=== PATIENT | male | born 1975 | race African-American/Black ===

== ENCOUNTER 2020-09-28 00:31 | Inpatient (IN) ==
[2020-09-28] MEDS ORDERED: guaiFENesin/DM ER 600-30 MG TABLET PO PRN (03:13)
[2020-09-28] MEDS ORDERED: diphenhydrAMINE CAP 25 MG CAPSULE PO PRN (03:13)
[2020-09-28] MEDS ORDERED: DEXTROSE 50% 25 GM/50 ML VIAL IV PRN (03:13)
[2020-09-28] MEDS ORDERED: ACETAMINOPHEN 325 MG TABLET PO PRN (03:13)
[2020-09-28] MEDS ORDERED: GLUCAGON 1 MG VIAL IM PRN (03:13)
[2020-09-28] MEDS ORDERED: ONDANSETRON 4 MG/2 ML VIAL IV PRN (03:13)
[2020-09-28] MEDS ORDERED: NICOTINE 21 MG/24 HR PATCH TRANSDERM PRN (03:13)
[2020-09-28] MEDS: hydrALAZINE 20 MG/1 ML VIAL IV PRN (04:28)
[2020-09-28 05:12] LABS: Basophils # 0.1 10*3/uL (0.0-0.2); Basophils % 0.7 % (0.0-0.8); Eosinophils % 0.3 % (0.00-10.9); Hematocrit 50.8 VOL% (42.0-52.0); Hemoglobin 16.6 GM/DL (14.0-18.0); Immature Granulocytes % 0.4 %; Immature Granulocytes Absolute 0.04 #; Lymphocytes # 1.4 10*3/uL (1.4-4.0); Lymphocytes % 14.7 % (21.2-54.2); Mean Corpuscular HGB Conc 32.7 GM/DL (32-36); Mean Corpuscular Volume 84.9 FL (87-102); Mean Platelet Volume 9.9 FL (9.6-12.0); Monocytes % 4.5 % (1.7-12.7); Neutrophils % 79.4 % (38.7-73.9); Platelet Count 252 T/CUMM (130-400); Red Blood Count 5.98 MC/CUMM (3.8-5.5); Red Cell Distribution Width 14.3 % (9.3-17.3); White Blood Count 9.6 T/CUMM (4-12)
[2020-09-28 05:34] LABS: Albumin 2.4 G/DL (3.4-5.0); Bilirubin,Total 1.9 MG/DL (0.2-1.0); Calcium 8.7 MG/DL (8.5-10.1); Osmolality,Calculated 278.7 MOS/KG (273-304); Potassium 3.8 MMOL/L (3.5-5.1); Risk Ratio 3.78; VLDL CHOLESTEROL 18.6 MG/DL
[2020-09-28] MEDS: ALBUTEROL/IPRATROPIUM 3 ML NEB RESP TX SCH ×3 (07:37→19:30)
[2020-09-28] MEDS: FUROSEMIDE 40 MG/4 ML VIAL IV SCH ×2 (09:34→16:00)
[2020-09-28] MEDS: ASPIRIN EC 81 MG TABLET PO SCH (09:34)
[2020-09-28] MEDS: carvediloL 6.25 MG TABLET PO SCH ×2 (09:34→20:26)
[2020-09-28] MEDS: ENOXAPARIN 40 MG/0.4 ML SYRINGE SUBCUT SCH (11:50)
[2020-09-28 13:05] LABS: Bilirubin,Urine Negative (Negative); Blood, Urine Negative (Negative); Glucose,Urine (UA) Negative (Negative); Ketones,Urine Negative (Negative); Mucus,Urine Occasional /LPF (Occasional); Nitrite,Urine Negative (Negative); Protein,Urine 100 MG/DL; RBC,Urine 2 /HPF (0-4); Squamous Epithelial Cell,Urine Occasional /HPF (0-10); Urine Appearance CLEAR (Clear); Urine Color Yellow (Yellow); Urine Specific Gravity 1.008 (1.001-1.035); WBC,Urine <1 /HPF (0-6)
[2020-09-28 13:10] LABS: Barbiturates Screen,Urine Negative (Negative); Benzodiazepines Screen,Urine Negative (Negative); Cannabinoid Screen,Urine Negative (Negative); Opiate Screen,Urine Negative (Negative); Phencyclidine Screen,Urine Negative (Negative)
[2020-09-28 13:18] LABS: Hepatitis B Core IgM Quant 0.05 Index; Hepatitis B Surface Ag Quant < 0.10 Index; Hepatitis B Surface Ag Result Non-Reactive (NonReactive); Hepatitis C Virus Ab Quant > 11.00 Index; Hepatitis C Virus Ab Result Reactive (NonReactive)
[2020-09-29] MEDS: ALBUTEROL/IPRATROPIUM 3 ML NEB RESP TX SCH ×4 (01:17→19:39)
[2020-09-29 05:17] LABS: Basophils # 0.1 10*3/uL (0.0-0.2); Basophils % 0.9 % (0.0-0.8); Eosinophils # 0.1 10*3/uL (0.0-0.87); Hematocrit 49.4 VOL% (42.0-52.0); Hemoglobin 16.4 GM/DL (14.0-18.0); Immature Granulocytes % 0.3 %; Immature Granulocytes Absolute 0.02 #; Lymphocytes % 25.5 % (21.2-54.2); Mean Corpuscular HGB Conc 33.2 GM/DL (32-36); Mean Corpuscular Volume 83.4 FL (87-102); Mean Platelet Volume 10.1 FL (9.6-12.0); Monocytes % 9.1 % (1.7-12.7); Neutrophils % 63.2 % (38.7-73.9); Platelet Count 245 T/CUMM (130-400); Red Blood Count 5.92 MC/CUMM (3.8-5.5); Red Cell Distribution Width 14.4 % (9.3-17.3); White Blood Count 7.9 T/CUMM (4-12)
[2020-09-29 05:34] LABS: Calcium 8.4 MG/DL (8.5-10.1); Osmolality,Calculated 273.8 MOS/KG (273-304); Potassium 3.5 MMOL/L (3.5-5.1)
[2020-09-29] MEDS: hydrALAZINE 20 MG/1 ML VIAL IV PRN (07:38)
[2020-09-29] MEDS: hydrALAZINE 25 MG TABLET PO SCH ×3 (08:50→20:58)
[2020-09-29] MEDS: SPIRONOLACTONE 25 MG TABLET PO SCH (08:50)
[2020-09-29] MEDS: ISOSORBIDE MONONITRATE 30 MG TABLET PO SCH (08:50)
[2020-09-29] MEDS: carvediloL 6.25 MG TABLET PO SCH ×2 (08:50→20:58)
[2020-09-29] MEDS: ASPIRIN EC 81 MG TABLET PO SCH (08:50)
[2020-09-29] MEDS: FUROSEMIDE 40 MG/4 ML VIAL IV SCH ×2 (08:54→15:35)
[2020-09-29] MEDS: ENOXAPARIN 40 MG/0.4 ML SYRINGE SUBCUT SCH (09:47)
[2020-09-30] MEDS: ALBUTEROL/IPRATROPIUM 3 ML NEB RESP TX SCH ×4 (01:12→19:13)
[2020-09-30] MEDS: hydrALAZINE 20 MG/1 ML VIAL IV PRN (04:37)
[2020-09-30 05:37] LABS: Basophils # 0.1 10*3/uL (0.0-0.2); Basophils % 0.8 % (0.0-0.8); Eosinophils # 0.1 10*3/uL (0.0-0.87); Eosinophils % 0.8 % (0.00-10.9); Hematocrit 50.1 VOL% (42.0-52.0); Hemoglobin 15.7 GM/DL (14.0-18.0); Immature Granulocytes % 0.5 %; Immature Granulocytes Absolute 0.04 #; Lymphocytes # 1.4 10*3/uL (1.4-4.0); Lymphocytes % 16.5 % (21.2-54.2); Mean Corpuscular HGB Conc 31.3 GM/DL (32-36); Mean Corpuscular Volume 86.7 FL (87-102); Mean Platelet Volume 9.7 FL (9.6-12.0); Monocytes % 10.3 % (1.7-12.7); Neutrophils % 71.1 % (38.7-73.9); Platelet Count 235 T/CUMM (130-400); Red Blood Count 5.78 MC/CUMM (3.8-5.5); Red Cell Distribution Width 14.5 % (9.3-17.3); White Blood Count 8.7 T/CUMM (4-12)
[2020-09-30 05:48] LABS: PT Patient Result 11.2 SECS (9.8-11.9)
[2020-09-30 06:03] LABS: Osmolality,Calculated 272.8 MOS/KG (273-304)
[2020-09-30 06:03] LABS: Calcium 7.9 MG/DL (8.5-10.1); Osmolality,Calculated 272.8 MOS/KG (273-304)
[2020-09-30 06:09] LABS: Albumin 2.1 G/DL (3.4-5.0); Bilirubin,Total 0.6 MG/DL (0.2-1.0); Calcium 7.8 MG/DL (8.5-10.1); Osmolality,Calculated 274.7 MOS/KG (273-304); Total Protein 5.6 G/DL (6.4-8.2)
[2020-09-30] MEDS ORDERED: POTASSIUM CHLORIDE 20 MEQ TABLET PO ONE (08:18)
[2020-09-30] MEDS: FUROSEMIDE 40 MG/4 ML VIAL IV SCH ×2 (09:40→16:41)
[2020-09-30] MEDS: hydrALAZINE 25 MG TABLET PO SCH ×3 (09:41→21:24)
[2020-09-30] MEDS: ISOSORBIDE MONONITRATE 30 MG TABLET PO SCH (09:41)
[2020-09-30] MEDS: ASPIRIN EC 81 MG TABLET PO SCH (09:41)
[2020-09-30] MEDS: SPIRONOLACTONE 25 MG TABLET PO SCH (09:42)
[2020-09-30] MEDS: METOPROLOL TARTRATE 50 MG TABLET PO SCH ×2 (09:45→21:24)
[2020-09-30] MEDS: ENOXAPARIN 40 MG/0.4 ML SYRINGE SUBCUT SCH (11:23)
[2020-09-30] MEDS ORDERED: POTASSIUM CHLORIDE RIDER 10 MEQ in PREMIX 1 EACH IV PRN (12:17)
[2020-09-30] MEDS ORDERED: MAGNESIUM SULF RIDER 2 GM in PREMIX 1 EACH IV PRN (12:17)
[2020-09-30 14:15] LABS: Calcium 8.2 MG/DL (8.5-10.1); Osmolality,Calculated 271.8 MOS/KG (273-304); Potassium 3.7 MMOL/L (3.5-5.1)
[2020-10-01] MEDS: ALBUTEROL/IPRATROPIUM 3 ML NEB RESP TX SCH ×4 (00:02→19:15)
[2020-10-01] MEDS ORDERED: diphenhydrAMINE CAP 50 MG CAPSULE PO ONE (06:30)
[2020-10-01] MEDS ORDERED: DIAZEPAM 5 MG TABLET PO ONE (06:30)
[2020-10-01 07:07] LABS: Basophils # 0.1 10*3/uL (0.0-0.2); Basophils % 0.7 % (0.0-0.8); Eosinophils # 0.1 10*3/uL (0.0-0.87); Eosinophils % 1.3 % (0.00-10.9); Hematocrit 48.6 VOL% (42.0-52.0); Hemoglobin 15.6 GM/DL (14.0-18.0); Immature Granulocytes % 0.4 %; Immature Granulocytes Absolute 0.04 #; Lymphocytes # 1.7 10*3/uL (1.4-4.0); Lymphocytes % 17.3 % (21.2-54.2); Mean Corpuscular HGB Conc 32.1 GM/DL (32-36); Mean Corpuscular Volume 85.9 FL (87-102); Mean Platelet Volume 10.5 FL (9.6-12.0); Monocytes % 13.5 % (1.7-12.7); Neutrophils % 66.8 % (38.7-73.9); Platelet Count 247 T/CUMM (130-400); Red Blood Count 5.66 MC/CUMM (3.8-5.5); Red Cell Distribution Width 14.6 % (9.3-17.3); White Blood Count 9.6 T/CUMM (4-12)
[2020-10-01 07:18] LABS: Calcium 8.3 MG/DL (8.5-10.1); Osmolality,Calculated 274.5 MOS/KG (273-304); Potassium 3.2 MMOL/L (3.5-5.1)
[2020-10-01 07:23] LABS: Albumin 2.2 G/DL (3.4-5.0); Bilirubin,Total 0.9 MG/DL (0.2-1.0); Calcium 8.1 MG/DL (8.5-10.1); Osmolality,Calculated 272.7 MOS/KG (273-304); Potassium 3.5 MMOL/L (3.5-5.1); Total Protein 5.1 G/DL (6.4-8.2)
[2020-10-01] MEDS ORDERED: POTASSIUM CHLORIDE 20 MEQ TABLET PO ONE (08:46)
[2020-10-01] MEDS: METOPROLOL TARTRATE 50 MG TABLET PO SCH ×2 (10:19→21:36)
[2020-10-01] MEDS: hydrALAZINE 25 MG TABLET PO SCH ×3 (10:20→21:36)
[2020-10-01] MEDS: ISOSORBIDE MONONITRATE 30 MG TABLET PO SCH (10:20)
[2020-10-01] MEDS: ASPIRIN EC 81 MG TABLET PO SCH (10:20)
[2020-10-01] MEDS: FUROSEMIDE 40 MG/4 ML VIAL IV SCH (10:21)
[2020-10-01] MEDS: SPIRONOLACTONE 25 MG TABLET PO SCH (10:21)
[2020-10-01] MEDS: ENOXAPARIN 40 MG/0.4 ML SYRINGE SUBCUT SCH (10:32)
[2020-10-01] MEDS ORDERED: HEPARIN/NACL 0.9% 2 UNITS/ML 3,000 UNIT/1,500 ML BAG IV ONE (14:01)
[2020-10-01] MEDS ORDERED: LIDOCAINE 1% 20 ML VIAL ONE (14:01)
[2020-10-01] MEDS ORDERED: MIDAZOLAM 2 MG/2 ML VIAL ONE (14:27)
[2020-10-01] MEDS ORDERED: fentaNYL 100 MCG/2 ML VIAL ONE (14:27)
[2020-10-01] MEDS: hydrALAZINE 20 MG/1 ML VIAL IV PRN (15:40)
[2020-10-02] MEDS: ALBUTEROL/IPRATROPIUM 3 ML NEB RESP TX SCH ×4 (00:30→19:34)
[2020-10-02 05:22] LABS: Basophils # 0.1 10*3/uL (0.0-0.2); Basophils % 0.7 % (0.0-0.8); Eosinophils # 0.1 10*3/uL (0.0-0.87); Eosinophils % 0.9 % (0.00-10.9); Hematocrit 48.7 VOL% (42.0-52.0); Hemoglobin 15.6 GM/DL (14.0-18.0); Immature Granulocytes Absolute 0.09 #; Lymphocytes # 1.7 10*3/uL (1.4-4.0); Lymphocytes % 18.8 % (21.2-54.2); Mean Corpuscular Volume 86.8 FL (87-102); Mean Platelet Volume 9.6 FL (9.6-12.0); Monocytes % 11.3 % (1.7-12.7); Neutrophils % 67.3 % (38.7-73.9); Platelet Count 229 T/CUMM (130-400); Red Blood Count 5.61 MC/CUMM (3.8-5.5); Red Cell Distribution Width 14.6 % (9.3-17.3); White Blood Count 8.9 T/CUMM (4-12)
[2020-10-02 05:54] LABS: Calcium 8.2 MG/DL (8.5-10.1); Osmolality,Calculated 276.7 MOS/KG (273-304); Potassium 3.5 MMOL/L (3.5-5.1)
[2020-10-02 05:59] LABS: Albumin 2.3 G/DL (3.4-5.0); Bilirubin,Total 0.8 MG/DL (0.2-1.0); Calcium 8.1 MG/DL (8.5-10.1); Potassium 3.4 MMOL/L (3.5-5.1); Total Protein 5.9 G/DL (6.4-8.2)
[2020-10-02] MEDS: FUROSEMIDE 40 MG/4 ML VIAL IV SCH ×3 (06:59→16:41)
[2020-10-02] MEDS: METOPROLOL TARTRATE 50 MG TABLET PO SCH (08:43)
[2020-10-02] MEDS: ISOSORBIDE MONONITRATE 30 MG TABLET PO SCH (08:43)
[2020-10-02] MEDS: ASPIRIN EC 81 MG TABLET PO SCH (08:43)
[2020-10-02] MEDS: hydrALAZINE 25 MG TABLET PO SCH ×3 (08:43→21:27)
[2020-10-02] MEDS: SPIRONOLACTONE 25 MG TABLET PO SCH (08:43)
[2020-10-02] MEDS ORDERED: metOLazone 5 MG TABLET PO ONE (12:00)
[2020-10-02] MEDS: CLOPIDOGREL 75 MG TABLET PO SCH (12:17)
[2020-10-02] MEDS: carvediloL 25 MG TABLET PO SCH ×2 (12:17→21:27)
[2020-10-02] MEDS ORDERED: ATORVASTATIN 40 MG TABLET PO SCH (21:00)
[2020-10-03] MEDS: ALBUTEROL/IPRATROPIUM 3 ML NEB RESP TX SCH ×4 (00:01→19:14)
[2020-10-03 05:34] LABS: Basophils # 0.1 10*3/uL (0.0-0.2); Basophils % 0.6 % (0.0-0.8); Eosinophils # 0.1 10*3/uL (0.0-0.87); Eosinophils % 1.1 % (0.00-10.9); Hematocrit 48.8 VOL% (42.0-52.0); Hemoglobin 15.8 GM/DL (14.0-18.0); Immature Granulocytes % 0.5 %; Immature Granulocytes Absolute 0.06 #; Lymphocytes # 1.9 10*3/uL (1.4-4.0); Lymphocytes % 16.6 % (21.2-54.2); Mean Corpuscular HGB Conc 32.4 GM/DL (32-36); Mean Corpuscular Volume 85.9 FL (87-102); Monocytes % 12.7 % (1.7-12.7); Neutrophils % 68.5 % (38.7-73.9); Platelet Count 215 T/CUMM (130-400); Red Blood Count 5.68 MC/CUMM (3.8-5.5); Red Cell Distribution Width 14.4 % (9.3-17.3); White Blood Count 11.4 T/CUMM (4-12)
[2020-10-03 05:58] LABS: Calcium 8.4 MG/DL (8.5-10.1); Osmolality,Calculated 265.4 MOS/KG (273-304)
[2020-10-03 06:10] LABS: Albumin 2.4 G/DL (3.4-5.0); Bilirubin,Direct 0.13 MG/DL (0.0-0.20); Bilirubin,Indirect 0.4 MG/DL (0.0-1.0); Bilirubin,Total 0.5 MG/DL (0.2-1.0); Total Protein 5.9 G/DL (6.4-8.2)
[2020-10-03] MEDS ORDERED: POTASSIUM CHLORIDE 20 MEQ PACK PO ONE (08:39)
[2020-10-03] MEDS: SPIRONOLACTONE 25 MG TABLET PO SCH (09:08)
[2020-10-03] MEDS: hydrALAZINE 25 MG TABLET PO SCH ×3 (09:08→20:55)
[2020-10-03] MEDS: ISOSORBIDE MONONITRATE 30 MG TABLET PO SCH (09:08)
[2020-10-03] MEDS: carvediloL 25 MG TABLET PO SCH ×2 (09:09→20:55)
[2020-10-03] MEDS: CLOPIDOGREL 75 MG TABLET PO SCH (09:09)
[2020-10-03] MEDS: FUROSEMIDE 40 MG/4 ML VIAL IV SCH ×2 (09:09→16:16)
[2020-10-03] MEDS: ASPIRIN EC 81 MG TABLET PO SCH (09:09)
[2020-10-04] MEDS: ALBUTEROL/IPRATROPIUM 3 ML NEB RESP TX SCH ×4 (01:18→19:37)
[2020-10-04 06:22] LABS: Basophils # 0.1 10*3/uL (0.0-0.2); Basophils % 0.6 % (0.0-0.8); Eosinophils # 0.1 10*3/uL (0.0-0.87); Eosinophils % 1.1 % (0.00-10.9); Hemoglobin 16.8 GM/DL (14.0-18.0); Immature Granulocytes % 0.8 %; Lymphocytes # 2.1 10*3/uL (1.4-4.0); Lymphocytes % 17.1 % (21.2-54.2); Mean Corpuscular HGB Conc 32.3 GM/DL (32-36); Mean Corpuscular Volume 85.5 FL (87-102); Mean Platelet Volume 9.9 FL (9.6-12.0); Monocytes % 10.4 % (1.7-12.7); Platelet Count 248 T/CUMM (130-400); Red Blood Count 6.08 MC/CUMM (3.8-5.5); Red Cell Distribution Width 14.6 % (9.3-17.3); White Blood Count 12.3 T/CUMM (4-12)
[2020-10-04 06:54] LABS: Osmolality,Calculated 266.5 MOS/KG (273-304); Potassium 3.2 MMOL/L (3.5-5.1)
[2020-10-04] MEDS: FUROSEMIDE 40 MG/4 ML VIAL IV SCH ×2 (09:04→15:53)
[2020-10-04] MEDS: carvediloL 25 MG TABLET PO SCH ×2 (09:05→22:33)
[2020-10-04] MEDS: CLOPIDOGREL 75 MG TABLET PO SCH (09:05)
[2020-10-04] MEDS: SPIRONOLACTONE 25 MG TABLET PO SCH (09:05)
[2020-10-04] MEDS: ISOSORBIDE MONONITRATE 30 MG TABLET PO SCH (09:05)
[2020-10-04] MEDS: ASPIRIN EC 81 MG TABLET PO SCH (09:05)
[2020-10-04] MEDS: hydrALAZINE 25 MG TABLET PO SCH ×3 (09:06→22:33)
[2020-10-04] MEDS ORDERED: POTASSIUM CHLORIDE 20 MEQ TABLET PO ONE (09:52)
[2020-10-05] MEDS: ALBUTEROL/IPRATROPIUM 3 ML NEB RESP TX SCH ×3 (01:02→12:48)
[2020-10-05 05:18] LABS: Basophils # 0.1 10*3/uL (0.0-0.2); Basophils % 0.7 % (0.0-0.8); Eosinophils # 0.2 10*3/uL (0.0-0.87); Eosinophils % 1.4 % (0.00-10.9); Hematocrit 51.4 VOL% (42.0-52.0); Hemoglobin 16.6 GM/DL (14.0-18.0); Immature Granulocytes % 0.9 %; Immature Granulocytes Absolute 0.12 #; Lymphocytes # 2.6 10*3/uL (1.4-4.0); Lymphocytes % 19.1 % (21.2-54.2); Mean Corpuscular HGB Conc 32.3 GM/DL (32-36); Mean Corpuscular Volume 85.1 FL (87-102); Mean Platelet Volume 9.9 FL (9.6-12.0); Monocytes % 11.6 % (1.7-12.7); Neutrophils % 66.3 % (38.7-73.9); Platelet Count 266 T/CUMM (130-400); Red Blood Count 6.04 MC/CUMM (3.8-5.5); Red Cell Distribution Width 14.5 % (9.3-17.3); White Blood Count 13.8 T/CUMM (4-12)
[2020-10-05 05:37] LABS: Calcium 9.4 MG/DL (8.5-10.1); Osmolality,Calculated 268.4 MOS/KG (273-304); Potassium 3.6 MMOL/L (3.5-5.1)
[2020-10-05] MEDS: FUROSEMIDE 40 MG/4 ML VIAL IV SCH ×2 (07:46→17:08)
[2020-10-05] MEDS: hydrALAZINE 25 MG TABLET PO SCH ×2 (09:47→17:08)
[2020-10-05] MEDS: ASPIRIN EC 81 MG TABLET PO SCH (09:47)
[2020-10-05] MEDS: carvediloL 25 MG TABLET PO SCH (09:48)
[2020-10-05] MEDS: CLOPIDOGREL 75 MG TABLET PO SCH (09:48)
[2020-10-05] MEDS: SPIRONOLACTONE 25 MG TABLET PO SCH (09:48)
[2020-10-05] MEDS: ISOSORBIDE MONONITRATE 30 MG TABLET PO SCH (09:48)
[2020-10-05 12:27] VITALS: BP 134/76
== END 2020-10-05 18:56 | disposition home or self-care (01) | DRG 286 ==
LOC: N.TELES 01:44 → SUATTDRO 01:44
PROVIDERS: ADMIT Internal Medicine; ATTEND Internal Medicine

== ENCOUNTER 2020-12-28 17:27 | Inpatient (IN) ==
[2020-12-28 18:30] LABS: Basophils # 0.1 10*3/uL (0.0-0.2); Basophils % 0.5 % (0.0-0.8); Eosinophils % 0.1 % (0.00-10.9); Hematocrit 44.9 VOL% (42.0-52.0); Hemoglobin 14.9 GM/DL (14.0-18.0); Immature Granulocytes % 0.7 %; Lymphocytes # 1.7 10*3/uL (1.4-4.0); Lymphocytes % 11.5 % (21.2-54.2); Mean Corpuscular HGB Conc 33.2 GM/DL (32-36); Mean Platelet Volume 9.8 FL (9.6-12.0); Monocytes % 5.1 % (1.7-12.7); Neutrophils % 82.1 % (38.7-73.9); Platelet Count 348 T/CUMM (130-400); Red Blood Count 5.28 MC/CUMM (3.8-5.5)
[2020-12-28 18:41] LABS: Albumin 1.9 G/DL (3.4-5.0); Bilirubin,Total 0.5 MG/DL (0.20-1.00); Calcium 7.9 MG/DL (8.5-10.1); Osmolality,Calculated 266.7 MOS/KG (273-304); Potassium 4.3 MMOL/L (3.5-5.1); Total Protein 6.2 G/DL (6.4-8.2)
[2020-12-28] MEDS ORDERED: FUROSEMIDE 40 MG/4 ML VIAL IV STA ×2 (18:46→22:05)
[2020-12-28 19:01] LABS: INR 1.2; PT Patient Result 12.8 SECS (10.5-12.0)
[2020-12-28] MEDS ORDERED: MORPHINE 2 MG/1 ML SYRINGE IV PRN (20:02)
[2020-12-28] MEDS ORDERED: CALCIUM CARBONATE CHEW 500 MG TABLET PO PRN (20:02)
[2020-12-28] MEDS ORDERED: guaiFENesin/DM ER 600-30 MG TABLET PO PRN (20:02)
[2020-12-28] MEDS ORDERED: DEXTROSE 50% 25 GM/50 ML VIAL IV PRN (20:02)
[2020-12-28] MEDS ORDERED: GLUCAGON 1 MG VIAL IM PRN (20:02)
[2020-12-28] MEDS ORDERED: ACETAMINOPHEN 325 MG TABLET PO PRN (20:02)
[2020-12-28] MEDS ORDERED: ONDANSETRON 4 MG/2 ML VIAL IV PRN (20:02)
[2020-12-28] MEDS ORDERED: NICOTINE 21 MG/24 HR PATCH TRANSDERM PRN (20:02)
[2020-12-28] MEDS ORDERED: LABETALOL 20 MG/4 ML SYRINGE IV STA (20:20)
[2020-12-28] MEDS ORDERED: LEVALBUTEROL 1.25 MG/3 ML NEB RESP TX PRN (22:04)
[2020-12-28 22:38] LABS: ABG Base Excess 4.4 MMOL/L (-2.5-2.5); ABG HCO3 28.1 MMOL/L (20-26); ABG Oxygen Saturation 86.6 % (95-100); ABG PCO2 51.5 MM HG (35-48); ABG PH 7.387 (7.35-7.45); ABG PO2 62.4 MM HG (80-95); ABG TCO2 26.4 MMOL/L (23-27)
[2020-12-28 23:39] LABS: ABG Base Excess 6.9 MMOL/L (-2.5-2.5); ABG HCO3 30.6 MMOL/L (20-26); ABG Oxygen Saturation 95.5 % (95-100); ABG PCO2 29.7 MM HG (35-48); ABG PH 7.584 (7.35-7.45); ABG PO2 73.9 MM HG (80-95); ABG TCO2 23.6 MMOL/L (23-27)
[2020-12-28] MEDS ORDERED: ENOXAPARIN 100 MG/ML SYRINGE SUBCUT STA (23:57)
[2020-12-29] MEDS: methylPREDNISolone SOD SUC 40 MG/1 ML VIAL IV SCH ×3 (00:33→16:58)
[2020-12-29] MEDS: cefTRIAXone 1,000 MG in SODIUM CHLORIDE 0.9% 100 ML IV SCH (00:35)
[2020-12-29] MEDS: ALBUTEROL/IPRATROPIUM 3 ML NEB RESP TX SCH ×4 (01:00→19:43)
[2020-12-29 01:13] LABS: Barbiturates Screen,Urine Negative (Negative); Benzodiazepines Screen,Urine Negative (Negative); Cannabinoid Screen,Urine Negative (Negative); Opiate Screen,Urine Negative (Negative); Phencyclidine Screen,Urine Negative (Negative)
[2020-12-29] MEDS: hydrALAZINE 20 MG/1 ML VIAL IV PRN ×3 (01:52→14:40)
[2020-12-29] MEDS: AZITHROMYCIN INJ 500 MG in SODIUM CHLORIDE 0.9% 250 ML IV SCH (02:14)
[2020-12-29 02:44] LABS: ABG Base Excess 5.7 MMOL/L (-2.5-2.5); ABG HCO3 29.5 MMOL/L (20-26); ABG Oxygen Saturation 99.7 % (95-100); ABG PH 7.525 (7.35-7.45); ABG TCO2 23.5 MMOL/L (23-27)
[2020-12-29 07:28] LABS: Albumin 1.6 G/DL (3.4-5.0); Bilirubin,Total 0.5 MG/DL (0.20-1.00); Calcium 7.3 MG/DL (8.5-10.1); Potassium 3.7 MMOL/L (3.5-5.1); Total Protein 6.5 G/DL (6.4-8.2)
[2020-12-29] MEDS ORDERED: FUROSEMIDE 40 MG/4 ML VIAL IV SCH (08:00)
[2020-12-29] MEDS ORDERED: NICOTINE 21 MG/24 HR PATCH TRANSDERM PRN (10:15)
[2020-12-29] MEDS ORDERED: carvediloL 6.25 MG TABLET PO SCH (10:30)
[2020-12-29] MEDS ORDERED: ISOSORBIDE MONONITRATE 30 MG TABLET PO SCH (10:30)
[2020-12-29] MEDS ORDERED: VALSARTAN 80 MG TABLET PO SCH (10:30)
[2020-12-29 12:50] LABS: ABG Base Excess 7.3 MMOL/L (-2.5-2.5); ABG HCO3 31.3 MMOL/L (20-26); ABG PCO2 41.5 MM HG (35-48); ABG PH 7.495 (7.35-7.45); ABG PO2 79.3 MM HG (80-95); ABG TCO2 32.5 MMOL/L (23-27)
[2020-12-29] MEDS: ASPIRIN EC 81 MG TABLET PO SCH (14:35)
[2020-12-29] MEDS: SPIRONOLACTONE 25 MG TABLET PO SCH (14:36)
[2020-12-29] MEDS: CLOPIDOGREL 75 MG TABLET PO SCH (14:43)
[2020-12-29] MEDS: FUROSEMIDE 40 MG/4 ML VIAL IV SCH (16:58)
[2020-12-29] MEDS: hydrALAZINE 25 MG TABLET PO SCH ×2 (17:44→21:30)
[2020-12-29] MEDS: carvediloL 3.125 MG TABLET PO SCH (21:30)
[2020-12-29] MEDS: ISOSORBIDE DINITRATE 20 MG TABLET PO SCH (21:30)
[2020-12-29] MEDS ORDERED: METOPROLOL TARTRATE 5 MG/5 ML VIAL IV ONE ×2 (23:20→23:22)
[2020-12-30] MEDS: ALBUTEROL/IPRATROPIUM 3 ML NEB RESP TX SCH ×4 (00:20→20:35)
[2020-12-30] MEDS: cefTRIAXone 1,000 MG in SODIUM CHLORIDE 0.9% 100 ML IV SCH ×2 (00:45→23:58)
[2020-12-30] MEDS: methylPREDNISolone SOD SUC 40 MG/1 ML VIAL IV SCH ×3 (00:45→18:07)
[2020-12-30] MEDS: AZITHROMYCIN INJ 500 MG in SODIUM CHLORIDE 0.9% 250 ML IV SCH (01:10)
[2020-12-30] MEDS ORDERED: PNEUMOCOCCAL VACCINE (23 VALENT) 0.5 ML VIAL IM ONE (08:35)
[2020-12-30] MEDS: ASPIRIN EC 81 MG TABLET PO SCH (09:18)
[2020-12-30] MEDS: SPIRONOLACTONE 25 MG TABLET PO SCH (09:19)
[2020-12-30] MEDS: carvediloL 3.125 MG TABLET PO SCH ×2 (09:19→21:23)
[2020-12-30] MEDS: ISOSORBIDE DINITRATE 20 MG TABLET PO SCH ×3 (09:19→21:23)
[2020-12-30] MEDS: hydrALAZINE 25 MG TABLET PO SCH ×3 (09:19→21:23)
[2020-12-30] MEDS: CLOPIDOGREL 75 MG TABLET PO SCH (09:19)
[2020-12-30] MEDS: FUROSEMIDE 40 MG/4 ML VIAL IV SCH ×2 (09:20→18:06)
[2020-12-30 11:50] LABS: Calcium 8.6 MG/DL (8.5-10.1); Osmolality,Calculated 275.4 MOS/KG (273-304); Potassium 4.2 MMOL/L (3.5-5.1)
[2020-12-30] MEDS: SKIN HEALING OINT (AQUAPHOR) 50 GM TUBE TOP SCH (17:27)
[2020-12-31] MEDS: methylPREDNISolone SOD SUC 40 MG/1 ML VIAL IV SCH ×3 (00:14→17:50)
[2020-12-31] MEDS: AZITHROMYCIN INJ 500 MG in SODIUM CHLORIDE 0.9% 250 ML IV SCH (00:44)
[2020-12-31] MEDS: ALBUTEROL/IPRATROPIUM 3 ML NEB RESP TX SCH ×4 (01:34→20:00)
[2020-12-31 05:43] LABS: Basophils % 0.1 % (0.0-0.8); Hematocrit 43.4 VOL% (42.0-52.0); Hemoglobin 14.1 GM/DL (14.0-18.0); Immature Granulocytes % 0.8 %; Immature Granulocytes Absolute 0.12 #; Lymphocytes # 0.6 10*3/uL (1.4-4.0); Lymphocytes % 3.7 % (21.2-54.2); Mean Corpuscular HGB Conc 32.5 GM/DL (32-36); Mean Platelet Volume 9.3 FL (9.6-12.0); Monocytes % 1.5 % (1.7-12.7); NRBC # 0.03 10*3/uL; Neutrophils % 93.9 % (38.7-73.9); Platelet Count 331 T/CUMM (130-400); Red Blood Count 4.99 MC/CUMM (3.8-5.5); Red Cell Distribution Width 15.9 % (9.3-17.3); White Blood Count 15.9 T/CUMM (4-12)
[2020-12-31 06:07] LABS: Calcium 8.6 MG/DL (8.5-10.1); Osmolality,Calculated 277.4 MOS/KG (273-304); Potassium 4.1 MMOL/L (3.5-5.1)
[2020-12-31 06:50] LABS: Band Neutrophils 4 % (0-10); Lymphocytes 4 % (20-55); Platelet Estimate Normal; Segmented Neutrophils 90 % (50-85); Total Cells Counted 100
[2020-12-31] MEDS: ASPIRIN EC 81 MG TABLET PO SCH (08:58)
[2020-12-31] MEDS: SPIRONOLACTONE 25 MG TABLET PO SCH (08:58)
[2020-12-31] MEDS: ISOSORBIDE DINITRATE 20 MG TABLET PO SCH ×3 (08:58→20:34)
[2020-12-31] MEDS: hydrALAZINE 25 MG TABLET PO SCH (08:59)
[2020-12-31] MEDS: CLOPIDOGREL 75 MG TABLET PO SCH (08:59)
[2020-12-31] MEDS: carvediloL 3.125 MG TABLET PO SCH ×2 (08:59→20:34)
[2020-12-31] MEDS: FUROSEMIDE 40 MG/4 ML VIAL IV SCH ×2 (11:05→17:49)
[2020-12-31] MEDS: SKIN HEALING OINT (AQUAPHOR) 50 GM TUBE TOP SCH (12:44)
[2020-12-31] MEDS: DOBUTamine 500 MG/250 ML PREMIX IV SCH (17:50)
[2021-01-01] MEDS: cefTRIAXone 1,000 MG in SODIUM CHLORIDE 0.9% 100 ML IV SCH ×2 (00:22→00:56)
[2021-01-01] MEDS: methylPREDNISolone SOD SUC 40 MG/1 ML VIAL IV SCH ×4 (00:22→15:45)
[2021-01-01] MEDS: ALBUTEROL/IPRATROPIUM 3 ML NEB RESP TX SCH ×4 (00:42→20:00)
[2021-01-01] MEDS: AZITHROMYCIN INJ 500 MG in SODIUM CHLORIDE 0.9% 250 ML IV SCH (01:32)
[2021-01-01 06:17] LABS: Basophils % 0.1 % (0.0-0.8); Hematocrit 41.4 VOL% (42.0-52.0); Hemoglobin 13.4 GM/DL (14.0-18.0); Immature Granulocytes % 0.5 %; Immature Granulocytes Absolute 0.07 #; Lymphocytes # 0.4 10*3/uL (1.4-4.0); Lymphocytes % 2.3 % (21.2-54.2); Mean Corpuscular HGB Conc 32.4 GM/DL (32-36); Mean Corpuscular Volume 86.8 FL (87-102); Neutrophils % 95.1 % (38.7-73.9); Platelet Count 294 T/CUMM (130-400); Red Blood Count 4.77 MC/CUMM (3.8-5.5); Red Cell Distribution Width 15.5 % (9.3-17.3); White Blood Count 15.1 T/CUMM (4-12)
[2021-01-01 06:30] LABS: Calcium 8.3 MG/DL (8.5-10.1); Osmolality,Calculated 271.7 MOS/KG (273-304); Potassium 3.9 MMOL/L (3.5-5.1)
[2021-01-01 06:36] LABS: Albumin 2.1 G/DL (3.4-5.0); Bilirubin,Total 0.5 MG/DL (0.20-1.00); Osmolality,Calculated 277.2 MOS/KG (273-304); Potassium 4.1 MMOL/L (3.5-5.1); Total Protein 5.8 G/DL (6.4-8.2)
[2021-01-01 06:45] LABS: Lymphocytes 3 % (20-55); Platelet Estimate Normal; Segmented Neutrophils 96 % (50-85); Total Cells Counted 100
[2021-01-01 06:46] LABS: Anisocytosis 1+
[2021-01-01] MEDS ORDERED: FUROSEMIDE 40 MG TABLET PO SCH (09:00)
[2021-01-01] MEDS: carvediloL 3.125 MG TABLET PO SCH ×2 (09:54→21:06)
[2021-01-01] MEDS: ISOSORBIDE DINITRATE 20 MG TABLET PO SCH ×3 (09:54→21:06)
[2021-01-01] MEDS: ASPIRIN EC 81 MG TABLET PO SCH (09:54)
[2021-01-01] MEDS: CLOPIDOGREL 75 MG TABLET PO SCH (09:55)
[2021-01-01] MEDS: FUROSEMIDE 40 MG/4 ML VIAL IV SCH ×2 (09:55→15:45)
[2021-01-01] MEDS: SKIN HEALING OINT (AQUAPHOR) 50 GM TUBE TOP SCH (10:02)
[2021-01-01] MEDS: hydrALAZINE 25 MG TABLET PO SCH ×2 (15:44→21:06)
[2021-01-01] MEDS: DOBUTamine 500 MG/250 ML PREMIX IV SCH (16:41)
[2021-01-02] MEDS: methylPREDNISolone SOD SUC 40 MG/1 ML VIAL IV SCH ×2 (00:10→09:25)
[2021-01-02] MEDS: ALBUTEROL/IPRATROPIUM 3 ML NEB RESP TX SCH ×4 (02:15→19:38)
[2021-01-02 06:34] LABS: Basophils % 0.1 % (0.0-0.8); Hematocrit 41.8 VOL% (42.0-52.0); Hemoglobin 13.3 GM/DL (14.0-18.0); Immature Granulocytes % 0.6 %; Immature Granulocytes Absolute 0.09 #; Lymphocytes # 0.4 10*3/uL (1.4-4.0); Lymphocytes % 2.7 % (21.2-54.2); Mean Corpuscular HGB Conc 31.8 GM/DL (32-36); Mean Corpuscular Volume 86.4 FL (87-102); Mean Platelet Volume 9.1 FL (9.6-12.0); Monocytes % 2.2 % (1.7-12.7); Neutrophils % 94.4 % (38.7-73.9); Platelet Count 273 T/CUMM (130-400); Red Blood Count 4.84 MC/CUMM (3.8-5.5); Red Cell Distribution Width 15.5 % (9.3-17.3); White Blood Count 13.9 T/CUMM (4-12)
[2021-01-02 06:55] LABS: Hypochromasia Slight; Lymphocytes 4 % (20-55); Microcytosis Slight; Platelet Estimate Adequate; Segmented Neutrophils 95 % (50-85); Total Cells Counted 100
[2021-01-02 07:00] LABS: Calcium 8.2 MG/DL (8.5-10.1); Osmolality,Calculated 273.5 MOS/KG (273-304); Potassium 3.5 MMOL/L (3.5-5.1)
[2021-01-02] MEDS: FUROSEMIDE 40 MG/4 ML VIAL IV SCH ×2 (09:25→15:09)
[2021-01-02] MEDS: hydrALAZINE 25 MG TABLET PO SCH (09:26)
[2021-01-02] MEDS: ASPIRIN EC 81 MG TABLET PO SCH (09:26)
[2021-01-02] MEDS: ISOSORBIDE DINITRATE 20 MG TABLET PO SCH ×3 (09:26→20:27)
[2021-01-02] MEDS: carvediloL 3.125 MG TABLET PO SCH ×2 (09:26→20:27)
[2021-01-02] MEDS: amLODIPine 5 MG TABLET PO SCH (09:26)
[2021-01-02] MEDS: CLOPIDOGREL 75 MG TABLET PO SCH (09:26)
[2021-01-02] MEDS: SKIN HEALING OINT (AQUAPHOR) 50 GM TUBE TOP SCH (09:27)
[2021-01-02] MEDS: DOBUTamine 500 MG/250 ML PREMIX IV SCH (11:45)
[2021-01-02] MEDS: SPIRONOLACTONE 25 MG TABLET PO SCH (13:31)
[2021-01-03] MEDS: ALBUTEROL/IPRATROPIUM 3 ML NEB RESP TX SCH ×3 (01:10→14:40)
[2021-01-03 05:07] LABS: Basophils % 0.2 % (0.0-0.8); Eosinophils % 0.1 % (0.00-10.9); Hematocrit 43.5 VOL% (42.0-52.0); Hemoglobin 14.1 GM/DL (14.0-18.0); Immature Granulocytes % 0.8 %; Immature Granulocytes Absolute 0.13 #; Lymphocytes # 0.8 10*3/uL (1.4-4.0); Lymphocytes % 4.8 % (21.2-54.2); Mean Corpuscular HGB Conc 32.4 GM/DL (32-36); Mean Corpuscular Volume 86.8 FL (87-102); Mean Platelet Volume 9.1 FL (9.6-12.0); Monocytes % 6.3 % (1.7-12.7); Neutrophils % 87.8 % (38.7-73.9); Platelet Count 276 T/CUMM (130-400); Red Blood Count 5.01 MC/CUMM (3.8-5.5); Red Cell Distribution Width 15.4 % (9.3-17.3); White Blood Count 15.7 T/CUMM (4-12)
[2021-01-03 05:32] LABS: Lymphocytes 2 % (20-55); Platelet Estimate Adequate; Segmented Neutrophils 91 % (50-85); Total Cells Counted 100
[2021-01-03 05:34] LABS: Calcium 8.3 MG/DL (8.5-10.1); Osmolality,Calculated 273.4 MOS/KG (273-304); Potassium 3.1 MMOL/L (3.5-5.1)
[2021-01-03] MEDS: DOBUTamine 500 MG/250 ML PREMIX IV SCH (06:48)
[2021-01-03] MEDS: FUROSEMIDE 40 MG/4 ML VIAL IV SCH ×2 (09:12→16:07)
[2021-01-03] MEDS: ASPIRIN EC 81 MG TABLET PO SCH (09:12)
[2021-01-03] MEDS: POTASSIUM CHLORIDE 20 MEQ TABLET PO PRN ×2 (09:12→11:05)
[2021-01-03] MEDS: carvediloL 3.125 MG TABLET PO SCH ×2 (09:13→20:45)
[2021-01-03] MEDS: SPIRONOLACTONE 25 MG TABLET PO SCH (09:13)
[2021-01-03] MEDS: amLODIPine 5 MG TABLET PO SCH (09:13)
[2021-01-03] MEDS: CLOPIDOGREL 75 MG TABLET PO SCH (09:13)
[2021-01-03] MEDS: SKIN HEALING OINT (AQUAPHOR) 50 GM TUBE TOP SCH (09:13)
[2021-01-03] MEDS: ISOSORBIDE DINITRATE 20 MG TABLET PO SCH ×3 (09:13→20:44)
[2021-01-03] MEDS ORDERED: CHLORTHALIDONE 25 MG TABLET PO ONE (11:45)
[2021-01-03] MEDS: CHLORTHALIDONE 25 MG TABLET PO SCH (13:35)
[2021-01-04] MEDS: ALBUTEROL/IPRATROPIUM 3 ML NEB RESP TX SCH ×5 (07:25→19:25)
[2021-01-04] MEDS ORDERED: FUROSEMIDE 40 MG/4 ML VIAL IV ONE (07:53)
[2021-01-04] MEDS ORDERED: POTASSIUM CHLORIDE 20 MEQ TABLET PO ONE (07:55)
[2021-01-04 08:17] LABS: Basophils # 0.1 10*3/uL (0.0-0.2); Basophils % 0.5 % (0.0-0.8); Eosinophils # 0.1 10*3/uL (0.0-0.87); Eosinophils % 0.8 % (0.00-10.9); Hematocrit 48.4 VOL% (42.0-52.0); Hemoglobin 15.7 GM/DL (14.0-18.0); Immature Granulocytes % 1.8 %; Immature Granulocytes Absolute 0.26 #; Lymphocytes # 1.4 10*3/uL (1.4-4.0); Lymphocytes % 9.6 % (21.2-54.2); Mean Corpuscular HGB Conc 32.4 GM/DL (32-36); Mean Corpuscular Volume 86.3 FL (87-102); Mean Platelet Volume 8.9 FL (9.6-12.0); Monocytes % 6.6 % (1.7-12.7); Neutrophils % 80.7 % (38.7-73.9); Platelet Count 265 T/CUMM (130-400); Red Blood Count 5.61 MC/CUMM (3.8-5.5); Red Cell Distribution Width 15.7 % (9.3-17.3); White Blood Count 14.5 T/CUMM (4-12)
[2021-01-04] MEDS: DOBUTamine 500 MG/250 ML PREMIX IV SCH (08:20)
[2021-01-04 08:40] LABS: Calcium 8.8 MG/DL (8.5-10.1); Osmolality,Calculated 269.4 MOS/KG (273-304); Potassium 3.3 MMOL/L (3.5-5.1)
[2021-01-04] MEDS ORDERED: SACUBITRIL/VALSARTAN 49-51 MG TABLET PO ONE (09:00)
[2021-01-04] MEDS: carvediloL 3.125 MG TABLET PO SCH ×2 (09:12→21:40)
[2021-01-04] MEDS: ASPIRIN EC 81 MG TABLET PO SCH (09:12)
[2021-01-04] MEDS: ISOSORBIDE DINITRATE 20 MG TABLET PO SCH ×3 (09:12→21:39)
[2021-01-04] MEDS: SPIRONOLACTONE 25 MG TABLET PO SCH (09:13)
[2021-01-04] MEDS: CHLORTHALIDONE 25 MG TABLET PO SCH (09:13)
[2021-01-04] MEDS: amLODIPine 5 MG TABLET PO SCH (09:13)
[2021-01-04] MEDS: CLOPIDOGREL 75 MG TABLET PO SCH (09:13)
[2021-01-04] MEDS: SKIN HEALING OINT (AQUAPHOR) 50 GM TUBE TOP SCH (14:59)
[2021-01-04] MEDS: FUROSEMIDE 80 MG TABLET PO SCH (15:27)
[2021-01-04 17:45] LABS: ABG HCO3 31.8 MMOL/L (20-26); ABG Oxygen Saturation 96.9 % (95-100); ABG PH 7.481 (7.35-7.45); ABG PO2 89.2 MM HG (80-95); ABG TCO2 26.5 MMOL/L (23-27); Allen Test Positive; Pt O2 Delivery Device Room Air
[2021-01-04] MEDS: CIPROFLOXACIN 500 MG TABLET PO SCH (21:40)
[2021-01-05] MEDS: ALBUTEROL/IPRATROPIUM 3 ML NEB RESP TX SCH ×4 (01:00→19:58)
[2021-01-05 05:43] LABS: Basophils % 0.1 % (0.0-0.8); Eosinophils # 0.2 10*3/uL (0.0-0.87); Eosinophils % 1.1 % (0.00-10.9); Hematocrit 56.8 VOL% (42.0-52.0); Hemoglobin 18.6 GM/DL (14.0-18.0); Immature Granulocytes % 4.8 %; Immature Granulocytes Absolute 0.82 #; Lymphocytes # 1.9 10*3/uL (1.4-4.0); Lymphocytes % 11.1 % (21.2-54.2); Mean Corpuscular HGB Conc 32.7 GM/DL (32-36); Mean Corpuscular Volume 85.4 FL (87-102); Mean Platelet Volume 9.4 FL (9.6-12.0); Monocytes % 7.3 % (1.7-12.7); Neutrophils % 75.6 % (38.7-73.9); Platelet Count 309 T/CUMM (130-400); Red Blood Count 6.65 MC/CUMM (3.8-5.5); Red Cell Distribution Width 17.6 % (9.3-17.3); White Blood Count 17.1 T/CUMM (4-12)
[2021-01-05 06:06] LABS: Calcium 8.8 MG/DL (8.5-10.1); Osmolality,Calculated 267.7 MOS/KG (273-304); Potassium 3.3 MMOL/L (3.5-5.1)
[2021-01-05 06:32] LABS: Lymphocytes 18 % (20-55); Segmented Neutrophils 75 % (50-85); Total Cells Counted 100
[2021-01-05 06:44] LABS: Platelet Estimate Normal
[2021-01-05 06:45] LABS: Macrocytosis 2+; Polychromasia Few
[2021-01-05] MEDS: amLODIPine 5 MG TABLET PO SCH (08:54)
[2021-01-05] MEDS: CLOPIDOGREL 75 MG TABLET PO SCH (08:55)
[2021-01-05] MEDS: CHLORTHALIDONE 25 MG TABLET PO SCH (08:55)
[2021-01-05] MEDS: POTASSIUM CHLORIDE 20 MEQ TABLET PO PRN (08:55)
[2021-01-05] MEDS: ISOSORBIDE DINITRATE 20 MG TABLET PO SCH ×3 (08:55→20:41)
[2021-01-05] MEDS: FUROSEMIDE 80 MG TABLET PO SCH ×2 (08:56→16:13)
[2021-01-05] MEDS: carvediloL 3.125 MG TABLET PO SCH ×2 (08:56→20:41)
[2021-01-05] MEDS: ASPIRIN EC 81 MG TABLET PO SCH (08:56)
[2021-01-05] MEDS: SPIRONOLACTONE 25 MG TABLET PO SCH (08:56)
[2021-01-05] MEDS: CIPROFLOXACIN 500 MG TABLET PO SCH ×2 (08:57→20:41)
[2021-01-05] MEDS: SKIN HEALING OINT (AQUAPHOR) 50 GM TUBE TOP SCH (12:10)
[2021-01-05 18:37] LABS: Bilirubin,Urine Negative (Negative); Blood, Urine Moderate mg/dL (Negative); Glucose,Urine (UA) Negative (Negative); Ketones,Urine Negative (Negative); Nitrite,Urine Negative (Negative); Protein,Urine 100 MG/DL; RBC,Urine 35 /HPF (0-4); Squamous Epithelial Cell,Urine Occasional /HPF (0-10); Urine Appearance CLEAR (Clear); Urine Color Yellow (Yellow); Urine Urobilinogen < 2.0 EU/DL (0.2-1.0)
[2021-01-05] MEDS: SACUBITRIL/VALSARTAN 49-51 MG TABLET PO SCH (20:42)
[2021-01-06] MEDS: ALBUTEROL/IPRATROPIUM 3 ML NEB RESP TX SCH ×2 (01:50→07:26)
[2021-01-06 05:36] LABS: Basophils % 0.1 % (0.0-0.8); Eosinophils # 0.2 10*3/uL (0.0-0.87); Eosinophils % 1.2 % (0.00-10.9); Hematocrit 55.9 VOL% (42.0-52.0); Hemoglobin 17.8 GM/DL (14.0-18.0); Immature Granulocytes % 6.4 %; Immature Granulocytes Absolute 1.09 #; Lymphocytes # 2.6 10*3/uL (1.4-4.0); Lymphocytes % 14.9 % (21.2-54.2); Mean Corpuscular HGB Conc 31.8 GM/DL (32-36); Mean Corpuscular Volume 86.8 FL (87-102); Mean Platelet Volume 9.4 FL (9.6-12.0); Neutrophils % 69.4 % (38.7-73.9); Platelet Count 284 T/CUMM (130-400); Red Blood Count 6.44 MC/CUMM (3.8-5.5); Red Cell Distribution Width 17.7 % (9.3-17.3); White Blood Count 17.2 T/CUMM (4-12)
[2021-01-06 05:57] LABS: Calcium 8.6 MG/DL (8.5-10.1); Osmolality,Calculated 270.5 MOS/KG (273-304); Potassium 3.6 MMOL/L (3.5-5.1)
[2021-01-06 06:03] LABS: Eosinophils 3 % (0-10); Lymphocytes 11 % (20-55); Platelet Estimate Normal; Segmented Neutrophils 74 % (50-85); Total Cells Counted 100
[2021-01-06] MEDS: ISOSORBIDE DINITRATE 20 MG TABLET PO SCH (09:10)
[2021-01-06] MEDS: CLOPIDOGREL 75 MG TABLET PO SCH (09:10)
[2021-01-06] MEDS: FUROSEMIDE 80 MG TABLET PO SCH (09:10)
[2021-01-06] MEDS: SPIRONOLACTONE 25 MG TABLET PO SCH (09:10)
[2021-01-06] MEDS: CIPROFLOXACIN 500 MG TABLET PO SCH (09:10)
[2021-01-06] MEDS: carvediloL 3.125 MG TABLET PO SCH (09:10)
[2021-01-06] MEDS: ASPIRIN EC 81 MG TABLET PO SCH (09:10)
[2021-01-06] MEDS: SACUBITRIL/VALSARTAN 49-51 MG TABLET PO SCH (09:10)
[2021-01-06] MEDS: amLODIPine 5 MG TABLET PO SCH (09:11)
[2021-01-06] MEDS: CHLORTHALIDONE 25 MG TABLET PO SCH (09:11)
[2021-01-06] MEDS: SKIN HEALING OINT (AQUAPHOR) 50 GM TUBE TOP SCH (09:11)
[2021-01-06 12:21] VITALS: BP 102/58
== END 2021-01-06 13:47 | disposition home or self-care (01) | DRG 291 ==
LOC: EDUNIT# → EDBD → N.ED 17:27 → N.EDINP 17:27 → SUATTDRO 20:02 → N.EDINP 12-30 08:02 → N.TELES 12-30 08:11 → SUATTDRO 12-31 09:06
PROVIDERS: ADMIT Internal Medicine Geriatric Medicine; ATTEND Internal Medicine